=== PATIENT | male | born 1945 | race Caucasian/White ===

== ENCOUNTER 2018-01-23 17:03 | Emergency (ER) | payer MEDICARE, BC ==
[2018-01-23 17:22] VITALS: O2SAT 97
[2018-01-23] MEDS ORDERED: BACIGUENT PACKET ONE (17:32)
[2018-01-23] MEDS ORDERED: Adacel Vial IM ONE (17:33)
--- NOTE | 2018-01-23 17:34 | ERPHSYRPT ---
- History of Present Illness Time Seen by Provider: 01/23/18 17:28 Source: patient Exam Limitations: no limitations Patient Subjective Stated Complaint: pt reports he was reaching across the counter to change a storm window when he slipped and the window came down suddenly on his left wrist. pt denies any other injury. Triage Nursing Assessment: pt is aox3, pupils perrl, afebrile, resps easy and non labored, radial pulses strong and equal. skin pink warm dry. pt has a large hematoma to the left dorsal wrist. small abrasion noted. bleeding controlled at this time. pt sensation is intact, ROM is normal. pt can move extremity and all digits with ease. Physician History: 72-year-old white male with history of atherosclerotic coronary artery disease, RI, high blood pressure, diabetes, sleep apnea Patient arrives with complaint pain and swelling of the left distal forearm dorsally symptoms since just prior to arrival. According to patient patient was working on a storm window apparently he slipped forward and the window came down and struck him on the dorsal surface of his left distal wrist. Patient has a small laceration perhaps 1-2 mm however he does have a large amount of edema to the dorsal distal wrist. He has full range of motion to all extremities. 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 He is denies other complaints other than he had some slight tenderness in his left lateral hip. Past medical history includes atherosclerotic coronary artery disease, myocardial infarction, CABG, high blood pressure, diabetes mellitus, sleep apnea , bilateral knee replacement,. Patient is on Effient. Social history patient denies tobacco alcohol or illicit drug use Occurred: just prior to arrival Method of Injury: direct blow (window fell and hit his dorsal left forearm) Quality: other (Minimal pain) Severity of Pain-Max: mild Severity of Pain-Current: mild Extremities Pain Location: forearm: left Modifying Factors: Improves With: nothing Associated Symptoms: none Allergies/Adverse Reactions: No Known Drug Allergies Allergy (Verified 01/23/18 17:23) Home Medications: Aspirin EC 81 mg [Ecotrin 81 mg] 81 mg PO DAILY 01/23/18 [History] Atorvastatin Calcium 40 mg PO HS 01/23/18 [History] Calcium Lactate 84 mg PO DAILY 01/23/18 [History] Chromium/Herbal Complex No.238 [Green Tea Caplet] 1 tablet PO DAILY 01/23/18 [ History] Ezetimibe 10 mg [Zetia 10 MG] 10 mg PO HS 01/23/18 [History] Furosemide 40 mg [Lasix 40 MG] 40 mg PO DAILY 01/23/18 [History] Losartan Potassium 100 mg PO DAILY 01/23/18 [History] Metformin HCl [Metformin HCl ER] 1,000 mg PO DAILY 01/23/18 [History] Methylsulfonylmethane [MSM] 1,000 mg PO DAILY 01/23/18 [History] Metoprolol Succinate 50 mg [Toprol Xl 50 MG] 50 mg PO DAILY 01/23/18 [ History] Mv-Mn/Iron/Folic Acid/Herb 190 [Megavite Caplet] 1 tablet PO DAILY 01/23/18 [ History] Nitroglycerin 0.4 mg Tablet [Nitrostat 0.4 MG Tablet] 0.4 mg SL TIDPRN 05/12 [History] [place]-3/Dha/Epa/Fish Oil [[place] 3 500 Softgel] 1 each PO DAILY 01/23/18 [History ] Pioglitazone 30 mg [Actos 30 MG] 30 mg PO DAILY 01/23/18 [History] Prasugrel HCL 10 MG [Effient 10 MG TABLET] 10 mg PO DAILY 01/23/18 [ History] Quercetin Dihydrate 1 gm MC DAILY 01/23/18 [History] Saw/Vit E/Sod Kathleen/Lyc/Beta/Pyg [Prostate Health Caplet] 1 tablet PO DAILY [History] Triamterene/Hydrochlorothiazid [Triamterene-Hctz 37.5-25 mg Tb] 1 each PO DAILY 01/23/18 [History] Hx Tetanus, Diphtheria Vaccination/Date Given: No Hx Influenza Vaccination/Date Given: No Hx Pneumococcal Vaccination/Date Given: No Immunizations Up to Date: Yes - Review of Systems Constitutional: No Fever, No Chills Eyes: No Symptoms Ears, Nose, & Throat: No Symptoms Respiratory: No Cough, No Dyspnea Cardiac: No Chest Pain, No Edema, No Syncope Abdominal/Gastrointestinal: No Abdominal Pain, No Nausea, No Vomiting, No Diarrhea Genitourinary Symptoms: No Dysuria Musculoskeletal: Other (hematoma versus edema left dorsal forearm mild tenderness with palpation), No Back Pain, No Neck Pain Skin: Other (hematoma versus edema left dorsal forearm, one to 2 mm laceration superficial to this) Neurological: No Dizziness, No Focal Weakness, No Sensory Changes Psychological: No Symptoms Endocrine: No Symptoms All Other Systems: Reviewed and Negative - Past Medical History Cardiac History: Coronary Artery Disease, Hypertension Respiratory History: Sleep Apnea Endocrine Medical History: Diabetes Type II Musculoskeletal History: Arthritis History: Other Other Medical History: kidney stone - Past Surgical History Past Surgical History: Yes Cardiac: CABG, Cardiac Catheterization, Cardiac Stent Musculoskeletal: Joint Replacement Other Surgical History: bilat knee replacement 2016 - Social History Smoking Status: Never smoker Drug Use: none Patient Lives Alone: No - Nursing Vital Signs Nursing Vital Signs: Initial Vital Signs Temperature 99.6 F 01/23/18 17:10 Pulse Rate 66 01/23/18 17:10 Respiratory Rate 18 01/23/18 17:10 Blood Pressure 127/62 01/23/18 17:10 O2 Sat by Pulse Oximetry 97 01/23/18 17:10 Pain Scale Pain Intensity 2 - Physical Exam General Appearance: alert Eyes, Ears, Nose, Throat Exam: moist mucous membranes Neck Exam: non-tender, supple Cardiovascular/Respiratory Exam: chest non-tender, normal breath sounds, regular rate/rhythm, no respiratory distress Abdominal Exam: non-tender, No guarding Back Exam: normal inspection, No vertebral tenderness Shoulder Exam: normal inspection, non-tender, no evidence of injury, normal ROM Elbow/Forearm Exam: No normal inspection (left dorsal forearm with approximately 84 cm hematoma distally, one to 2 mm superficial laceration overlying this) Wrist Exam: normal inspection Hand Exam: normal inspection Neuro/Tendon Exam: normal sensation, normal motor functions Mental Status Exam: alert, oriented x 3, cooperative Skin Exam: other (8 x 4 cm hematoma overlying dorsal distal left forearm,1-2 mm superficial laceration overlying this) SpO2 Interpretation: normal SpO2: 97 Oxygen Delivery: Room Air - Course Nursing assessment & vital signs reviewed: Yes - Radiology Exams Left Forearm X-ray Interpretation: Discussed w/ radiologist (x-ray left forearm: No comparisons. Negative fracture. Scapholunate widening, probable underlying ligament tear. Mild elbow degenerative spurring. Distal soft tissue swelling and vesicular calcification.) Ordered Tests: Active Orders 24 hr Category Date Time Status Bryan Bandage Application -[facility] STAT Care 01/23/18 18:07 Active Ice Pack, Apply PRN Care 01/23/18 17:47 Active Wound Care STAT Care 01/23/18 17:27 Active FOREARM Stat Exams 01/23/18 17:28 Taken Medication Summary Discontinued Medications Generic Name Dose Route Start Last Admin Trade Name Eliana PRN Reason Stop Dose Admin Bacitracin Zinc 0.9 gm 01/23/18 17:27 01/23/18 17:36 Baciguent Packet TP 01/23/18 17:28 0.9 gm STAT ONE Administration Bacitracin Zinc Confirm 01/23/18 17:32 Baciguent Packet Administered 01/23/18 17:33 Dose 1 gm .ROUTE .STK-MED ONE Diphtheria/Tetanus/Acell Pertussis 0.5 ml 01/23/18 17:27 01/23/18 17:35 Adacel Vial IM 01/23/18 17:28 0.5 ml .ONCE ONE Administration Diphtheria/Tetanus/Acell Pertussis Confirm 01/23/18 17:33 Adacel Vial Administered 01/23/18 17:34 Dose 0.5 ml IM .STK-MED ONE - Progress Progress: improved Progress Note: 01/23/18 18:45 72-year-old white male with history of atherosclerotic coronary artery disease, RI, CABG, high blood pressure, diabetes type 2, sleep apnea Patient arrives with complaint of swelling in his a dorsal left forearm symptoms since just prior to arrival apparently the patient was putting in a storm window when he slipped forward and window fell down and closed on his left forearm. He has an approximately 8 x 4 cm hematoma to the left dorsal distal forearm he has minimal tenderness in the area. He has a small 1-2 mm superficial laceration overlying the hematoma he does not have active bleeding. He has radial and ulnar pulses which are equal and symmetrical 2 over 4 he has good capillary refill to all fingers sensation intact to all fingers. Patient had an x-ray of the left forearm here in the emergency room which is negative for fractures. There is scapholunate widening which is interpreted as probable underlying ligament tear by the radiologist. He has mild elbow degenerative spurring, distal soft tissue swelling and scattered vascular calcification. Patient really with minimal tenderness most of which is located over the hematoma which is proximal to the scapholunate joint. Upon reexamination perhaps very mild tenderness overlying the scapholunate joint dorsally. I've asked the patient's nurse to go ahead and clean his superficial laceration apply bacitracin. Patient was initially given an Bryan wrap and cold packs to the emergency room. Will place patient into an aluminum splint for the left wrist and have Bryan wrap over this. Will have patient follow-up with Dr. Griffith he is to call her tomorrow. He may alternatively follow-up with his orthopedist in [place]. I've offered the patient pain medications he doesn't want any , he states he really doesn't hurt. He will be advised to take Tylenol if necessary every 4 hours at home. He will be advised ice and elevate his left forearm 24-48 hours. - Departure Time of Disposition: 18:50 Departure Disposition: Home Clinical Impression: scapholunate widening left wrist Contusion of left forearm Qualifiers: Encounter type: initial encounter Qualified Code(s): S50.12XA - Contusion of left forearm, initial encounter Traumatic hematoma of left forearm Qualifiers: Encounter type: initial encounter Qualified Code(s): S50.12XA - Contusion of left forearm, initial encounter Condition: Fair Critical Care Time: No Referrals: TORRIE GRIFFITH [Primary Care Provider] - Additional Instructions: Return home. Bacitracin to laceration until healed. Ice and elevate your left wrist 24-48 hours monitor fingers 4 good capillary refill. Tylenol every 4 hours as needed for pain. Follow-up with Dr. Griffith or your orthopedist. Return for acute distress or for severe symptoms.
[2018-01-23] MEDS: Adacel Vial IM ONE (17:35)
[2018-01-23] MEDS: BACIGUENT PACKET TP ONE (17:36)
[2018-01-23 19:02] VITALS: BP 129/65; PULSE 58
--- NOTE | 2018-01-24 08:37 | XRAY ---
Indication: Pain and swelling following injury. Comparison: None 2 views of the left forearm demonstrates distal posterior soft tissue swelling, elbow degenerative spurring, and scattered vascular calcifications. Widening of the scapholunate articulation concerning for underlying ligamentous tear. No other bony, articular, or soft tissue abnormalities.
== END 2018-01-23 19:05 | disposition home or self-care (01) ==
LOC: ED 17:03
DX: S50.12XA Contusion of left forearm, initial encounter (principal); S59.812A Other specified injuries left forearm, initial encounter; W20.8XXA Other cause of strike by thrown, projected or falling object, initial encounter; Y93.89 Activity, other specified; Y92.009 Unspecified place in unspecified non-institutional (private) residence as the place of occurrence of the external cause; Z79.82 Long term (current) use of aspirin; Z79.899 Other long term (current) drug therapy
CPT/HCPCS: 73090; 90471; 90715; 99284; A4570; A9270-GY

== ENCOUNTER 2021-09-16 05:48 | Day surgery (SDC) | payer MEDICARE, BC ==
[2021-09-16] MEDS ORDERED: Lactated Ringers 1,000 ML IV ONE (06:59)
[2021-09-16] MEDS ORDERED: Lactated Ringers 1,000 ML IV SCH (07:00)
[2021-09-16] MEDS ORDERED: DIPRIVAN 200 MG/20 ML IV ONE ×2 (07:41→07:43)
[2021-09-16] MEDS ORDERED: Xylocaine-Mpf 2% 5 Ml Vial ONE (07:41)
[2021-09-16] MEDS ORDERED: XYLOCAINE 2%/Epi 1:200000 20ML VIAL MPF ONE (07:43)
[2021-09-16] MEDS ORDERED: ATROPINE SULFATE 1MG ONE (07:58)
--- NOTE | 2021-09-16 08:26 | PCM.DCORD ---
- Discharge Disposition: Home, Self-Care Condition: Stable Prescriptions: New PANTOPRAZOLE 40 mg Tablet [Protonix 40MG Tablet] 40 mg PO QPM #30 tab Continue Saw/Vit E/Sod Kathleen/Lyc/Beta/Pyg [Prostate Health Caplet] 1 tablet PO DAILY Mv-Mn/Iron/Folic Acid/Herb 190 [Megavite Caplet] 1 tablet PO DAILY Methylsulfonylmethane [MSM] 1,000 mg PO DAILY Chromium/Herbal Complex No.238 [Green Tea Caplet] 1 tablet PO DAILY [place]-3/Dha/Epa/Fish Oil [[place] 3 500 Softgel] 1 each PO DAILY Calcium Lactate 84 mg PO DAILY Triamterene/Hydrochlorothiazid [Triamterene-Hctz 37.5-25 mg Tb] 1 each PO DAILY Pioglitazone 30 mg [Actos 30 MG] 30 mg PO DAILY Nitroglycerin 0.4 mg Tablet [Nitrostat 0.4 MG Tablet] 0.4 mg SL TIDPRN Metoprolol Succinate 50 mg [Toprol Xl 50 MG] 0.5 tab PO DAILY Metformin HCl [Metformin ER Osmotic] 1,000 mg PO BID Losartan Potassium 100 mg PO DAILY Furosemide 40 mg [Lasix 40 MG] 40 mg PO DAILY Ezetimibe 10 mg [Zetia 10 MG] 10 mg PO HS Atorvastatin Calcium 40 mg PO HS Chromium/Herbal Complex No.238 [Green Tea Caplet] 1 tab PO BID Discontinued Prasugrel HCL 10 MG [Effient 10 MG TABLET] 10 mg PO DAILY Additional Instructions: hold prasurgel for 5 days, avoid aspirin and all nsaids. start pantoprazole 40mg in the evening today. f/u in office in 1 week Follow up with: TORRIE JAMES [Primary Care Provider] -
--- NOTE | 2021-09-16 08:49 | OP ---
SURGERY DATE/TIME: 09/16/2021 0742 PREOPERATIVE DIAGNOSES: 1) Dysphagia. 2) Anemia. 3) Due for screening colonoscopy. POSTOPERATIVE DIAGNOSES: 1) Moderate gastritis. 2) Transverse and sigmoid colon polyp. PROCEDURES: 1) EGD. 2) Colonoscopy. SURGEON: Alexis Ayon M.D. ANESTHESIA: MAC by Jair Merrill CRNA. ESTIMATED BLOOD LOSS: Minimal. SPECIMENS: 1) There are two cold forceps biopsies taken from the gastric antrum. 2) Two hot forceps polypectomies from the colon. DESCRIPTION OF PROCEDURE: After informed written consent was obtained, the patient was taken to the endoscopy suite. He was placed in left lateral decubitus position and a bite block was inserted. Anesthesia was titrated to desired level of consciousness and the endoscope was inserted in the posterior oropharynx. Under direct visualization the esophagus was traversed. The esophageal mucosa had a normal appearance free of any lesions or defects. Likewise, the gastroesophageal junction appeared normal with small hiatal hernia present. There were some dried flecks of blood in the gastric cavity. No active bleeding or ulcerations appreciable. The pylorus was traversed and the duodenum had a normal mucosal appearance. There were gastritis-type changes in the gastric antrum. Two cold forceps biopsies were taken from this area and sent for Helicobacter pylori testing. Upon withdrawal no other obvious abnormalities were encountered. The scope was removed and the scopes were switched. Digital rectal exam showed normal sphincter tone and no internal lesions. The scope was inserted in the rectum and sequentially the entire colonic mucosa was traversed. The level of the cecum was reached and verified with direct visualization of the ileocecal valve. Upon withdrawal there was a small sessile polyp in the distal transverse colon which was grasped with forceps, cauterized and removed in its entirety. Likewise, there was another small sessile polyp in the sigmoid colon which was removed with hot forceps. Prior to withdrawal retroflexion was performed and showed no internal lesions. The scope was removed and the patient was transferred to the recovery room in good condition. I have advised that he hold his Effient for five days to allow biopsy sites to heal and plan to start him on proton pump inhibitor at the time of discharge.
[2021-09-16 09:01] VITALS: BP 127/89; PULSE 54; O2SAT 99
== END 2021-09-16 09:19 | disposition home or self-care (01) ==
LOC: SDC 05:48
PROVIDERS: ATTEND Family Medicine
DX: Z12.11 Encounter for screening for malignant neoplasm of colon (principal); R13.10 Dysphagia, unspecified; D12.5 Benign neoplasm of sigmoid colon; K29.70 Gastritis, unspecified, without bleeding; D64.9 Anemia, unspecified; E11.9 Type 2 diabetes mellitus without complications
CPT/HCPCS: 82947; 99100; J0461; J2704

== ENCOUNTER 2023-04-22 15:34 | Emergency (ER) | payer MEDICARE, BC ==
[2023-04-22 15:46] VITALS: TEMP 98.9
[2023-04-22] MEDS ORDERED: BABY ASPIRIN 81 MG CHEW PO ONE (16:10)
[2023-04-22] MEDS ORDERED: BABY ASPIRIN 81 MG CHEW ONE (16:19)
[2023-04-22 16:25] LABS: Absolute Neutrophil Ct (ANC) 5.26 x10^3/uL (1.4-6.9); BASOPHIL % 0.7 % (0.0-0.4); Basophil (Absolute #) 0.05 x10^3/uL (0-0.4); Eosinophil % 2.3 % (0.00-5.0); Eosinophil (Absolute #) 0.17 x10^3/uL (0-0.5); Hematocrit 37.6 % (42-50); Hemoglobin 11.8 g/dL (12.5-18.0); IMMATURE GRAN # 0.05 x10^3u/L (0.00-0.03); IMMATURE GRAN % 0.7 % (0.00-0.4); Lymphocyte (Absolute #) 1.18 x10^3/uL (1.0-4.6); Lymphocytes % 16.1 % (24.0-44.0); Mean Cell Volume 95.2 fL (78-100); Mean Corpuscular Hemoglobin 29.9 pg (26-32); Mean Corpuscular Hgb Concent. 31.4 g/dL (32-36); Monocyte (Absolute #) 0.63 x10^3/uL (0.0-1.3); Monocytes % 8.6 % (0.0-12.0); Neutrophil % 71.6 % (36.0-66.0); Platelet Count 291 x10^3/uL (150-450); Red Blood Count 3.95 x10^6/uL (4.1-5.6); Red Cell Distribution Width 14.7 % (11.5-14.0); White Blood Count 7.3 x10^3/uL (4.0-10.5)
[2023-04-22 16:34] LABS: ALBUMIN 4.3 g/dL (3.5-5.0); ANION GAP 12.9 MEQ/L (5-15); BILIRUBIN,TOTAL 0.8 mg/dL (0.2-1.3); Calcium 9.8 mg/dL (8.4-10.2); Creatinine 1 0.99 mg/dL (0.66-1.25); Total Protein 7.6 g/dL (6.3-8.2)
[2023-04-22 16:35] LABS: PROTIME 10.9 SECONDS (9.4-12.5)
--- NOTE | 2023-04-22 16:43 | ERPHSYRPT ---
- History of Present Illness Time Seen by Provider: 04/22/23 15:45 Historian: patient, family (Patient's spouse provided independent, additional medical information and details of patient's symptoms in the last few days) Exam Limitations: no limitations Patient Subjective Stated Complaint: pt c/o of left sided chest pressure and shortness of breath Triage Nursing Assessment: Pt brought to the ER by his , hypertensive, rates chest pressure as 3/10, ravin lower leg edema, pulses normal, reports being short of breath for the past couple of days and began having some chest pain after lunch today, pt walked into the ER with a stable gait Physician History: This is an obese 78-year-old white male patient of Dr. Casiano who has history of hypertension, coronary disease including CABG and cardiac stents, and presen ts with 2 to 3-day history of intermittent substernal/central chest pressure as well as similar symptoms occasionally in his left anterior chest. No other areas of radiation. Patient stated he feels as though his symptoms would completely resolve if he was able to belch. The symptoms he is experiencing now are different than those symptoms from his prior myocardial infarctions. Patient has a history of gastroesophageal reflux disease, diabetes, hyperlipidemia and sleep apnea. He is on Plavix. He is a former smoker. Timing/Duration: day(s) (Last 2 to 3 days), worse (No worse in intensity just more constant today) Quality: pressure Location: substernal, central, other Chest Pain Radiation: no radiation Severity of Pain-Max: mild Severity of Pain-Current: mild Modifying Factors: Improves With: nothing Associated Symptoms: shortness of breath (With exertion and laying flat), fatigue (More than usual last 2 to 3 days) Nitro Today/Relief: no nitro taken today Aspirin Treatment Today: no aspirin today Allergies/Adverse Reactions: No Known Drug Allergies Allergy (Verified 04/22/23 15:46) Home Medications: Atorvastatin Calcium 40 mg PO HS 01/23/18 [History] Calcium Lactate 84 mg PO DAILY 01/23/18 [History] Chromium/Herbal Complex No.238 [Green Tea Caplet] 1 tablet PO DAILY 01/23/18 [History] Ezetimibe 10 mg [Zetia 10 MG] 10 mg PO HS 01/23/18 [History] Furosemide 40 mg [Lasix 40 MG] 40 mg PO DAILY 01/23/18 [History] Losartan Potassium 100 mg PO DAILY 01/23/18 [History] Metformin HCl [Metformin ER Osmotic] 1,000 mg PO BID 01/23/18 [History] Methylsulfonylmethane [MSM] 1,000 mg PO DAILY 01/23/18 [History] Metoprolol Succinate 50 mg [Toprol Xl 50 MG] 0.5 tab PO DAILY 01/23/18 [History] Mv-Mn/Iron/Folic Acid/Herb 190 [Megavite Caplet] 1 tablet PO DAILY 01/23/18 [History] Nitroglycerin 0.4 mg Tablet [Nitrostat 0.4 MG Tablet] 0.4 mg SL TIDPRN 01/23/18 [History] [place]-3/Dha/Epa/Fish Oil [[place] 3 500 Softgel] 1 each PO DAILY 01/23/18 [History] Pioglitazone 30 mg [Actos 30 MG] 30 mg PO DAILY 01/23/18 [History] Saw/Vit E/Sod Kathleen/Lyc/Beta/Pyg [Prostate Health Caplet] 1 tablet PO DAILY 01/23/18 [History] Triamterene/Hydrochlorothiazid [Triamterene-Hctz 37.5-25 mg Tb] 1 each PO DAILY 01/23/18 [History] Chromium/Herbal Complex No.238 [Green Tea Caplet] 1 tab PO BID 09/11/21 [History] Hx Tetanus, Diphtheria Vaccination/Date Given: No Hx Influenza Vaccination/Date Given: No Hx Pneumococcal Vaccination/Date Given: No Travel Risk - International Travel Have you traveled outside of the country in past 3 weeks: No - Coronavirus Screening Are you exhibiting any of the following symptoms?: Yes Symptoms: Shortness of Breath - Vaccine Status Have you recieved a Covid-19 vaccination: No - Review of Systems Constitutional: Fatigue Eyes: No Symptoms Ears, Nose, & Throat: No Symptoms Respiratory: Dyspnea on Exertion ([place]) Cardiac: Chest Pain (Grabbed as a pressure) Abdominal/Gastrointestinal: No Symptoms Genitourinary Symptoms: No Symptoms Musculoskeletal: No Symptoms Skin: No Symptoms Neurological: No Symptoms Psychological: No Symptoms Endocrine: No Symptoms Hematologic/Lymphatic: No Symptoms Immunological/Allergic: No Symptoms All Other Systems: Reviewed and Negative - Past Medical History Pertinent Past Medical History: Yes Neurological History: No Pertinent History ENT History: No Pertinent History Cardiac History: Congenital Heart Disease, Myocardial Infarction ([place]), High Cholesterol, Hypertension Respiratory History: Sleep Apnea Endocrine Medical History: Diabetes Type II Musculoskeletal History: Arthritis GI Medical History: Ulcer History: No Pertinent History Psycho-Social History: No Pertinent History Male Reproductive Disorders: No Pertinent History Other Medical History: [place] 20 years ago. Hx of ulcer as a teenager. Hard of hearing Left ear. No hearing aids. - Past Surgical History Past Surgical History: Yes Neuro Surgical History: No Pertinent History Cardiac: CABG, Cardiac Stent, Cardiac Catheterization Respiratory: No Pertinent History Gastrointestinal: No Pertinent History Genitourinary: Kidney Surgery Musculoskeletal: Orthopedic Surgery, Joint Replacement Male Surgical History: No Pertinent History Other Surgical History: CABG x 5 vessels 20 years ago. Cardiac stent x 1 two years ago. Lithotripsy x2 with urethral stents. middle ear surgery left ear. Bilateral knee replacements. 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 - Social History Smoking Status: Former smoker Exposure to second hand smoke: No Drug Use: none Patient Lives Alone: No - Nursing Vital Signs Nursing Vital Signs: Initial Vital Signs Temperature 98.9 F 04/22/23 15:36 Pulse Rate 78 04/22/23 15:36 Respiratory Rate 22 04/22/23 15:36 Blood Pressure 168/71 04/22/23 15:36 O2 Sat by Pulse Oximetry 95 04/22/23 15:36 Pain Scale Pain Intensity 0 - Physical Exam General Appearance: no apparent distress, alert, anxiety, obese Eye Exam: PERRL/EOMI, eyes nml inspection Ears, Nose, Throat Exam: normal ENT inspection, moist mucous membranes Neck Exam: normal inspection, non-tender, supple, full range of motion Respiratory Exam: normal breath sounds, chest tenderness, lungs clear, airway intact, No respiratory distress Cardiovascular Exam: regular rate/rhythm, normal heart sounds, normal peripheral pulses Gastrointestinal/Abdomen Exam: soft, normal bowel sounds, No tenderness Rectal Exam: not done Back Exam: normal inspection, normal range of motion, No CVA tenderness, No vertebral tenderness Extremity Exam: normal range of motion, pelvis stable, pedal edema (Mild bilateral feet and ankle) Neurologic Exam: alert, oriented x 3, cooperative, instrument repairer II-XII nml as tested, normal mood/affect, nml cerebellar function, nml station & gait, sensation nml Skin Exam: normal color, warm, dry Lymphatic Exam: No adenopathy SpO2 Interpretation: normal SpO2: 96 O2 Delivery: Room Air - Course Nursing assessment & vital signs reviewed: Yes EKG Interpreted by Me: RATE (88), Sinus Rhythm, NORMAL AXIS, Other (Ventricular bigeminy. Prolonged SD interval. No acute ischemic changes on today's twelve- lead EKG. No comparison twelve-lead EKG available) Ordered Tests: Active Orders 24 hr Category Date Time Status Tool Crib Lead STAT Care 04/22/23 16:11 Active EKG-ER Only STAT Care 04/22/23 16:10 Active IV Insertion STAT Care 04/22/23 16:10 Active Pulse Oximetry (ED) STAT Care 04/22/23 16:10 Active CHEST 1 VIEW (PORTABLE) Stat Exams 04/22/23 16:10 Taken BLOOD CULTURE Stat Lab 04/22/23 16:41 Received CBC W DIFF Stat Lab 04/22/23 16:00 Completed CMP Stat Lab 04/22/23 16:00 Completed MONO SCREEN Stat Lab 04/22/23 16:00 Completed NT PRO BNPII Stat Lab 04/22/23 16:00 Completed PROTIME WITH INR Stat Lab 04/22/23 16:00 Completed TROPONIN Q4H Lab 04/22/23 16:00 Completed TROPONIN Q4H Lab 04/22/23 19:00 Completed TROPONIN Q4H Lab 04/23/23 00:15 Ordered Medication Summary Discontinued Medications Generic Name Dose Route Start Last Admin Trade Name Freq PRN Reason Stop Dose Admin Aspirin 324 mg 04/22/23 16:10 04/22/23 16:20 Aspirin 81 Mg Tab.Chew PO 04/22/23 16:11 324 mg STAT ONE Administration Aspirin Confirm 04/22/23 16:19 Aspirin 81 Mg Tab.Chew Administered 04/22/23 16:20 Dose 324 mg .ROUTE .STK-MED ONE Furosemide 40 mg 04/22/23 18:16 04/22/23 18:22 Furosemide 40 Mg/4 Ml Vial IV 04/22/23 18:17 40 mg STAT ONE Administration Furosemide Confirm 04/22/23 18:20 Furosemide 40 Mg/4 Ml Vial Administered 04/22/23 18:21 Dose 40 mg .ROUTE .STK-MED ONE Lab/Rad Data: Laboratory Result Diagrams 04/22/23 16:00 04/22/23 16:00 Laboratory Results 04/22/23 04/22/23 04/22/23 Range/Units 19:00 16:20 16:00 WBC (4.0-10.5) x10^3/uL RBC (4.1-5.6) x10^6/uL Hgb (12.5-18.0) g/dL Hct (42-50) % MCV (78-100) fL MCH (26-32) pg MCHC (32-36) g/dL RDW (11.5-14.0) % Plt Count (150-450) x10^3/uL MPV (7.5-11.0) fL Gran % (36.0-66.0) % Immature Gran % (Auto) (0.00-0.4) % Nucleat RBC Rel Count (0.00-0.1) % Eos # (Auto) (0-0.5) x10^3/uL Immature Gran # (Auto) (0.00-0.03) x10^3u/L Absolute Lymphs (auto) (1.0-4.6) x10^3/uL Absolute Monos (auto) (0.0-1.3) x10^3/uL Absolute Nucleated RBC (0.00-0.01) x10^3u/L Lymphocytes % (24.0-44.0) % Monocytes % (0.0-12.0) % Eosinophils % (0.00-5.0) % Basophils % (0.0-0.4) % Absolute Granulocytes (1.4-6.9) x10^3/uL Basophils # (0-0.4) x10^3/uL PT (9.4-12.5) SECONDS INR (0.8-3.0) Sodium (137-145) mmol/L Potassium (3.5-5.1) mmol/L Chloride (98-107) mmol/L Carbon Dioxide (22-30) mmol/L Anion Gap (5-15) MEQ/L BUN (9-20) mg/dL Creatinine (0.66-1.25) mg/dL Estimated GFR ML/MIN Glucose (74-106) mg/dL Calcium (8.4-10.2) mg/dL Total Bilirubin (0.2-1.3) mg/dL AST (17-59) U/L ALT (0-50) U/L Alkaline Phosphatase (38-126) U/L Troponin I 0.032 (0.000-0.034) ng/mL NT-Pro-B Natriuret Pep (<300) pg/mL Serum Total Protein (6.3-8.2) g/dL Albumin (3.5-5.0) g/dL Monoscreen NEGATIVE (NEGATIVE) Influenza Type A Ag NEGATIVE (NEGATIVE) Influenza Type B Ag NEGATIVE (NEGATIVE) RSV (PCR) NEGATIVE (NEGATIVE) SARS-CoV-2 (PCR) NEGATIVE (NEGATIVE) 04/22/23 04/22/23 04/22/23 Range/Units 16:00 16:00 16:00 WBC (4.0-10.5) x10^3/uL RBC (4.1-5.6) x10^6/uL Hgb (12.5-18.0) g/dL Hct (42-50) % MCV (78-100) fL MCH (26-32) pg MCHC (32-36) g/dL RDW (11.5-14.0) % Plt Count (150-450) x10^3/uL MPV (7.5-11.0) fL Gran % (36.0-66.0) % Immature Gran % (Auto) (0.00-0.4) % Nucleat RBC Rel Count (0.00-0.1) % Eos # (Auto) (0-0.5) x10^3/uL Immature Gran # (Auto) (0.00-0.03) x10^3u/L Absolute Lymphs (auto) (1.0-4.6) x10^3/uL Absolute Monos (auto) (0.0-1.3) x10^3/uL Absolute Nucleated RBC (0.00-0.01) x10^3u/L Lymphocytes % (24.0-44.0) % Monocytes % (0.0-12.0) % Eosinophils % (0.00-5.0) % Basophils % (0.0-0.4) % Absolute Granulocytes (1.4-6.9) x10^3/uL Basophils # (0-0.4) x10^3/uL PT 10.9 (9.4-12.5) SECONDS INR 1.00 (0.8-3.0) Sodium (137-145) mmol/L Potassium (3.5-5.1) mmol/L Chloride (98-107) mmol/L Carbon Dioxide (22-30) mmol/L Anion Gap (5-15) MEQ/L BUN (9-20) mg/dL Creatinine (0.66-1.25) mg/dL Estimated GFR ML/MIN Glucose (74-106) mg/dL Calcium (8.4-10.2) mg/dL Total Bilirubin (0.2-1.3) mg/dL AST (17-59) U/L ALT (0-50) U/L Alkaline Phosphatase (38-126) U/L Troponin I 0.031 (0.000-0.034) ng/mL NT-Pro-B Natriuret Pep 1410 (<300) pg/mL Serum Total Protein (6.3-8.2) g/dL Albumin (3.5-5.0) g/dL Monoscreen (NEGATIVE) Influenza Type A Ag (NEGATIVE) Influenza Type B Ag (NEGATIVE) RSV (PCR) (NEGATIVE) SARS-CoV-2 (PCR) (NEGATIVE) 04/22/23 04/22/23 Range/Units 16:00 16:00 WBC 7.3 (4.0-10.5) x10^3/uL RBC 3.95 L (4.1-5.6) x10^6/uL Hgb 11.8 L (12.5-18.0) g/dL Hct 37.6 L (42-50) % MCV 95.2 (78-100) fL MCH 29.9 (26-32) pg MCHC 31.4 L (32-36) g/dL RDW 14.7 H (11.5-14.0) % Plt Count 291 (150-450) x10^3/uL MPV 9.0 (7.5-11.0) fL Gran % 71.6 H (36.0-66.0) % Immature Gran % (Auto) 0.7 H (0.00-0.4) % Nucleat RBC Rel Count 0.0 (0.00-0.1) % Eos # (Auto) 0.17 (0-0.5) x10^3/uL Immature Gran # (Auto) 0.05 H (0.00-0.03) x10^3u/L Absolute Lymphs (auto) 1.18 (1.0-4.6) x10^3/uL Absolute Monos (auto) 0.63 (0.0-1.3) x10^3/uL Absolute Nucleated RBC 0.00 (0.00-0.01) x10^3u/L Lymphocytes % 16.1 L (24.0-44.0) % Monocytes % 8.6 (0.0-12.0) % Eosinophils % 2.3 (0.00-5.0) % Basophils % 0.7 (0.0-0.4) % Absolute Granulocytes 5.26 (1.4-6.9) x10^3/uL Basophils # 0.05 (0-0.4) x10^3/uL PT (9.4-12.5) SECONDS INR (0.8-3.0) Sodium 142 (137-145) mmol/L Potassium 4.0 (3.5-5.1) mmol/L Chloride 104 (98-107) mmol/L Carbon Dioxide 29 (22-30) mmol/L Anion Gap 12.9 (5-15) MEQ/L BUN 19 (9-20) mg/dL Creatinine 0.99 (0.66-1.25) mg/dL Estimated GFR 77.0 ML/MIN Glucose 178 H (74-106) mg/dL Calcium 9.8 (8.4-10.2) mg/dL Total Bilirubin 0.80 (0.2-1.3) mg/dL AST 31 (17-59) U/L ALT 19 (0-50) U/L Alkaline Phosphatase 77 (38-126) U/L Troponin I (0.000-0.034) ng/mL NT-Pro-B Natriuret Pep (<300) pg/mL Serum Total Protein 7.6 (6.3-8.2) g/dL Albumin 4.3 (3.5-5.0) g/dL Monoscreen (NEGATIVE) Influenza Type A Ag (NEGATIVE) Influenza Type B Ag (NEGATIVE) RSV (PCR) (NEGATIVE) SARS-CoV-2 (PCR) (NEGATIVE) - Progress Progress: improved, re-examined Air Movement: poor Progress Note: 04/22/23 16:40 This patient's medical issue is at least moderate complexity. Level complex in the workup performed is based on review of the patient's past medical history, review of the patient's medication list, review of the patient's drug allergy list, history of present illness and physical findings on examination. Workup includes placement of intravenous line, twelve-lead EKG, CBC, CMP, BNP, troponin level, chest x-ray, CBC CMP and PT/INR. We will also order viral swabs. 04/22/23 19:24 I reviewed and interpreted the patient's laboratory data results. Patient has slightly elevated BNP level for his age. I did provide him with 40 mg of intravenous Lasix. Patient has no other significant laboratory data at this time. The patient's troponin levels in the high normal range of 0.031. I interpreted the patient's chest x-ray. There is a questionable right basal tiny pleural effusion. No obvious acute cardiopulmonary process present. There is cardiomegaly present. Patient was reexamined. His room air oxygenation saturation levels are 97%. Patient states he is feeling better than he has felt in a long time. He has no chest pain. He is not short of breath. 04/22/23 20:59 Patient's second troponin is within normal limits and not significantly changed from the prior. Patient's twelve-lead EKG was interpreted by me. It is a normal sinus rhythm. There is no acute ischemic changes. Heart rate is 66 bpm. The repeat twelve-lead EKG was performed at 1942. Patient wants to go home. We walked him up and down the em. He has no further chest pain. He is not short of breath. Patient's is allowing the patient to make a decision. I offered the patient to bring him in for observation and continue serial troponins and repeat twelve-lead EKG in the morning. He is refusing. 04/22/23 21:03 Blood Culture(s) Obtained: No Antibiotics given: No Counseled pt/family regarding: lab results, diagnosis, rad results Medical Desision Making - Independent Historian Additional History obtained from: Spouse - Diagnostic Testing Diagnostic test were ordered, analyzed, and reviewed by me: Yes Radiological Interpretation: Interpreted by me - Risk of complications Low Risk: Low risk of morbidity from additional dx testing or treatment - Departure Departure Disposition: Home Clinical Impression: Nonspecific chest pain Condition: Stable Critical Care Time: No Referrals: MARIE CASIANO, [Primary Care Provider] - Follow up/PCP as directed Additional Instructions: Drink plenty fluids. Take your medication as prescribed. Return to the emergency department if symptoms recur. Call your primary care provider and emergency nurse on Wednesday, April 26, 2023 to make arrangements for follow-up appointment in the next 3 to 5 days.
[2023-04-22 17:24] LABS: INFLUENZA A NEGATIVE (NEGATIVE); INFLUENZA B NEGATIVE (NEGATIVE); RESPIRATORY SYNCTIAL VIRUS NEGATIVE (NEGATIVE); SARS-CoV-2 Xpert Express NEGATIVE (NEGATIVE)
[2023-04-22] MEDS ORDERED: Lasix 40 MG/4 ML IV ONE (18:16)
[2023-04-22] MEDS ORDERED: Lasix 40 MG/4 ML ONE (18:20)
[2023-04-22 21:02] VITALS: BP 150/66; PULSE 65; RESP 13
[2023-04-22 21:04] VITALS: O2SAT 96
--- NOTE | 2023-04-22 21:41 | XRAY ---
Indication: Chest pain. Comparison: August 21, 2021 Portable apical lordotic chest again demonstrates CABG. New borderline cardiomegaly with new tiny bibasilar effusions favoring cardiac decompensation/CHF. Superposed pneumonia not completely excluded. Bony thorax intact.
== END 2023-04-22 21:12 | disposition home or self-care (01) ==
LOC: ED 15:34
DX: R07.9 Chest pain, unspecified (principal); I10 Essential (primary) hypertension; E11.9 Type 2 diabetes mellitus without complications; E78.5 Hyperlipidemia, unspecified; Z79.02 Long term (current) use of antithrombotics/antiplatelets; Z79.84 Long term (current) use of oral hypoglycemic drugs; Z79.899 Other long term (current) drug therapy; Z28.310 Unvaccinated for COVID-19; Z20.828 Contact with and (suspected) exposure to other viral communicable diseases
CPT/HCPCS: 0241U; 36000; 36415; 71045; 80053; 83880; 84484; 85025; 85610; 86308; 87040; 93005; 93041; 94760; 96374; 99284; J1940; A9270-GY

== ENCOUNTER 2023-11-10 15:11 | Emergency (ER) | payer MEDICARE, BC ==
[2023-11-10 15:58] VITALS: TEMP 98.1
[2023-11-10 16:02] VITALS: O2SAT 95
[2023-11-10] MEDS ORDERED: PERCOCET TABLET 5/325MG ONE (16:25)
[2023-11-10] MEDS: PERCOCET TABLET 5/325MG PO ONE (16:26)
--- NOTE | 2023-11-10 17:00 | XRAY ---
Indication: Pain following fall 3 days ago. Comparison: None 3 view left shoulder demonstrates osteopenia, mild acromioclavicular/glenohumeral degenerative arthropathy, mild/moderate multilevel cervical thoracic degenerative spondylosis, mild scattered vascular calcifications, and sternotomy wires. No other bony, articular, or soft tissue abnormalities.
--- NOTE | 2023-11-10 17:04 | XRAY ---
Indication: Pain following fall 3 days ago. Multiple contiguous axial images obtained through the chest without contrast. Comparison: None Mild bibasilar subsegmental atelectasis/scarring. Posterior lateral right lower lobe demonstrates 4 mm indeterminant subpleural noncalcified nodule. No infiltrate, effusion, or pneumothorax. Heart not enlarged with CABG. Aorta moderately arteriosclerotic without aneurysm. Alligator mediastinal and tiny right hilar calcified nodes. No pathologic mediastinal lymphadenopathy. Bony thorax intact with osteopenia, mild/moderate degenerative changes throughout spine. Limited upper abdomen demonstrates splenic calcified granulomas and 1.2 cm left mid renal exophytic hyperdense mass. Impression: 1. 4 mm right lower lobe indeterminate noncalcified nodule, too small for PET/CT. Outside comparison studies recommended. If not, recommend follow-up per Fleischner guidelines. 2. Small left mid renal exophytic hyperdense mass. Again outside comparison studies recommended if available. Sonogram may help differentiate solid versus cystic. 3. Chronic findings including atelectasis/scarring, arteriosclerotic disease, chronic bony findings, and old granulomatous disease.
--- NOTE | 2023-11-10 17:07 | ERPHSYRPT ---
- History of Present Illness Time Seen by Provider: 11/10/23 15:47 Historian: patient, family Exam Limitations: no limitations Patient Subjective Stated Complaint: Fell on 11/04/23 and injured his left shoulder and ribs. Triage Nursing Assessment: Patient ambulated back to ER. He is alert and oriented. Some bruising present to LUE. Patient having difficulty adbducting left arm/shoulder related to pain. NO SOB. Physician History: 78 years old male with a history of coronary artery disease with bypass presente d in the ER with complaint of left shoulder and left anterior chest wall pain for almost 1 week after he was running/chasing dogs, tripped and fell on the ground with injury to left shoulder and left anterolateral chest wall. Patient reports moderate intensity sharp pain with palpation/movements at shoulder and also with deep breathing it hurts in the anterolateral chest wall. No difficulty breathing. No chest pain otherwise. No abdominal pain nausea or vomiting. No numbness or tingling in the hand/wrist. Aspirin Treatment Today: unknown Allergies/Adverse Reactions: No Known Drug Allergies Allergy (Verified 11/10/23 15:46) Home Medications: Atorvastatin Calcium 40 mg PO HS 01/23/18 [History] Calcium Lactate 84 mg PO DAILY 01/23/18 [History] Chromium/Herbal Complex No.238 [Green Tea Caplet] 1 tablet PO DAILY 01/23/18 [History] Ezetimibe 10 mg [Zetia 10 MG] 10 mg PO HS 01/23/18 [History] Furosemide 40 mg [Lasix 40 MG] 40 mg PO DAILY 01/23/18 [History] Losartan Potassium 100 mg PO DAILY 01/23/18 [History] Metformin HCl [Metformin ER Osmotic] 1,000 mg PO BID 01/23/18 [History] Methylsulfonylmethane [MSM] 1,000 mg PO DAILY 01/23/18 [History] Metoprolol Succinate 50 mg [Toprol Xl 50 MG] 0.5 tab PO DAILY 01/23/18 [History] Mv-Mn/Iron/Folic Acid/Herb 190 [Megavite Caplet] 1 tablet PO DAILY 01/23/18 [History] Nitroglycerin 0.4 mg Tablet [Nitrostat 0.4 MG Tablet] 0.4 mg SL TIDPRN 01/23/18 [History] [place]-3/Dha/Epa/Fish Oil [[place] 3 500 Softgel] 1 each PO DAILY 01/23/18 [Hist ory] Pioglitazone 30 mg [Actos 30 MG] 30 mg PO DAILY 01/23/18 [History] Saw/Vit E/Sod Kathleen/Lyc/Beta/Pyg [Prostate Health Caplet] 1 tablet PO DAILY 01/23/18 [History] Triamterene/Hydrochlorothiazid [Triamterene-Hctz 37.5-25 mg Tb] 1 each PO DAILY 01/23/18 [History] Chromium/Herbal Complex No.238 [Green Tea Caplet] 1 tab PO BID 09/11/21 [History] Hx Tetanus, Diphtheria Vaccination/Date Given: Yes Hx Influenza Vaccination/Date Given: No Hx Pneumococcal Vaccination/Date Given: No Immunizations Up to Date: Yes Travel Risk - International Travel Have you traveled outside of the country in past 3 weeks: No - Emerging Infectious Disease Are you exhibiting symptoms associated with any current EIDs: No - Review of Systems Constitutional: No Symptoms Ears, Nose, & Throat: No Symptoms Respiratory: No Symptoms Cardiac: Chest Pain Abdominal/Gastrointestinal: No Symptoms Musculoskeletal: Fall, Injury, Joint Pain Skin: No Symptoms Neurological: No Symptoms Endocrine: No Symptoms Hematologic/Lymphatic: No Symptoms Immunological/Allergic: No Symptoms - Past Medical History Pertinent Past Medical History: Yes Neurological History: No Pertinent History ENT History: No Pertinent History Cardiac History: Congenital Heart Disease, Coronary Artery Disease, High Cholesterol, Hypertension, Myocardial Infarction (CT) Respiratory History: Sleep Apnea Endocrine Medical History: Diabetes Type II Musculoskeletal History: Arthritis GI Medical History: Ulcer History: No Pertinent History Psycho-Social History: No Pertinent History Male Reproductive Disorders: No Pertinent History Other Medical History: Pharmacy Tech: Dr. Silva - Past Surgical History Past Surgical History: Yes Neuro Surgical History: No Pertinent History Cardiac: CABG, Cardiac Stent, Cardiac Catheterization Respiratory: No Pertinent History Gastrointestinal: No Pertinent History Genitourinary: Kidney Surgery Musculoskeletal: Orthopedic Surgery, Joint Replacement Male Surgical History: No Pertinent History Other Surgical History: Lithotripsy x 2 with urethral stents. middle ear surgery left ear. Bilateral knee replacements. 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 - Social History Smoking Status: Never smoker Exposure to second hand smoke: No Drug Use: none Patient Lives Alone: No - Social Determinants of Health Will the patient participate in the screening: Yes Do you worry about a steady place to live?: No Do you have any problems with any of the following?: No known problems In the past 12 months,have you had to go without utilities?: No Transportation Issues: No Has anyone in your support network made you feel unsafe?: No Have you or anyone in your house had to go without enough: No - Nursing Vital Signs Nursing Vital Signs: Initial Vital Signs Temperature 98.1 F 11/10/23 15:46 Pulse Rate 70 11/10/23 15:46 Respiratory Rate 18 11/10/23 15:46 Blood Pressure 115/81 11/10/23 15:46 O2 Sat by Pulse Oximetry 96 11/10/23 15:46 Pain Scale Pain Intensity 10 - Physical Exam General Appearance: no apparent distress, alert Eye Exam: PERRL/EOMI Ears, Nose, Throat Exam: normal ENT inspection Neck Exam: normal inspection, full range of motion Respiratory Exam: normal breath sounds, chest tenderness (Left mid to lower anterolateral chest wall), lungs clear Cardiovascular Exam: regular rate/rhythm, normal heart sounds Gastrointestinal/Abdomen Exam: soft, normal bowel sounds, No tenderness Back Exam: normal inspection, normal range of motion Extremity Exam: normal inspection, limited range of motion (Left shoulder with diffuse tenderness, no crepitus, restricted range of motion in all direction.) Neurologic Exam: alert, oriented x 3 Skin Exam: normal color, warm SpO2 Interpretation: normal SpO2: 95 O2 Delivery: Room Air - Course EKG Interpreted by Me: RATE ([id number]), Sinus Carlos, NORMAL AXIS, Q-wave Ordered Tests: Active Orders 24 hr Category Date Time Status EKG-ER Only STAT Care 11/10/23 16:18 Completed CHEST WITHOUT CONTRAST [CT] Stat Exams 11/10/23 16:27 Completed SHOULDER Stat Exams 11/10/23 16:19 Completed CBC W DIFF Stat Lab 11/10/23 17:00 Completed CMP Stat Lab 11/10/23 17:00 Completed TROPONIN Q4H Lab 11/10/23 17:00 Completed Medication Summary Discontinued Medications Generic Name Dose Route Start Last Admin Trade Name Freq PRN Reason Stop Dose Admin Hydrocodone Bitart/Acetaminophen 2 tab 11/10/23 18:19 11/10/23 18:24 Hydrocodone/Apap 5/325 1 Tab Tablet PO 11/10/23 18:20 2 tab SENT HOME W/ PATIENT ONE Administration Hydrocodone Bitart/Acetaminophen Confirm 11/10/23 18:22 Hydrocodone/Apap 5/325 1 Tab Tablet Administered 11/10/23 18:23 Dose 2 tab .ROUTE .STK-MED ONE Lidocaine 1 patch 11/10/23 18:27 11/10/23 18:31 Lidocaine Hcl 1 Patch Patch TOP 11/10/23 18:28 1 patch NOW ONE Administration Lidocaine Confirm 11/10/23 18:29 Lidocaine Hcl 1 Patch Patch Administered 11/10/23 18:30 Dose 1 patch .ROUTE .STK-MED ONE Oxycodone/Acetaminophen 1 tab 11/10/23 16:19 11/10/23 16:26 Oxycodone Hcl/Apap 5 Mg/325 Mg Tablet PO 11/10/23 16:20 1 tab STAT ONE Administration Oxycodone/Acetaminophen Confirm 11/10/23 16:25 Oxycodone Hcl/Apap 5 Mg/325 Mg Tablet Administered 11/10/23 16:26 Dose 1 tab .ROUTE .STK-MED ONE Lab/Rad Data: Laboratory Result Diagrams 11/10/23 17:00 11/10/23 17:00 Laboratory Results 11/10/23 11/10/23 11/10/23 Range/Units 17:00 17:00 17:00 WBC 6.6 (4.23-9.07) x10^3/uL RBC 3.82 L (4.63-6.08) x10^6/uL Hgb 11.4 L (13.7-17.5) g/dL Hct 35.2 L (40.1-51.0) % MCV 92.1 (79.0-92.2) fL MCH 29.8 (25.7-32.2) pg MCHC 32.4 (32.3-36.5) g/dL RDW 14.6 H (11.6-14.4) % Plt Count 235 (163-337) x10^3/uL MPV 8.6 L (9.4-12.4) fL Gran % 67.1 (34.0-67.9) % Immature Gran % (Auto) 0.3 (0.001-0.429) % Nucleat RBC Rel Count 0.0 (0.00-0.2) % Eos # (Auto) 0.21 (0.04-0.54) x10^3/uL Immature Gran # (Auto) 0.02 (0.001-0.031) x10^3u/L Absolute Lymphs (auto) 1.32 (1.32-3.57) x10^3/uL Absolute Monos (auto) 0.57 (0.30-0.82) x10^3/uL Absolute Nucleated RBC 0.00 (0.00-0.012) x10^3u/L Lymphocytes % 20.0 L (21.8-53.1) % Monocytes % 8.6 (5.3-12.2) % Eosinophils % 3.2 (0.8-7.0) % Basophils % 0.8 (0.2-1.2) % Absolute Granulocytes 4.42 (1.78-5.38) x10^3/uL Basophils # 0.05 (0.01-0.08) x10^3/uL Sodium 139 (135-145) mmol/L Potassium 4.4 (3.5-5.1) mmol/L Chloride 103 (98-107) mmol/L Carbon Dioxide 28 (22-30) mmol/L Anion Gap 11.8 (5-15) MEQ/L BUN 40 H (9-20) mg/dL Creatinine 1.36 H (0.66-1.25) mg/dL Estimated GFR 52.6 ML/MIN Glucose 104 (74-106) mg/dL Calcium 10.3 H (8.4-10.2) mg/dL Total Bilirubin 0.60 (0.2-1.3) mg/dL AST 30 (17-59) U/L ALT 20 (0-50) U/L Alkaline Phosphatase 69 (38-126) U/L Troponin I 0.018 (0.000-0.033) ng/mL Serum Total Protein 7.6 (6.3-8.2) g/dL Albumin 4.5 (3.5-5.0) g/dL - Progress Progress: improved, re-examined Air Movement: good Progress Note: 11/10/23 18:04 78 years old is evaluated in the ER for ground-level fall almost a week ago with injury to left shoulder left chest wall. No obvious difficulty breathing. Has reproducible pain with movements of left shoulder and palpation of left chest wall. No crepitus or flail segment. Given symptomatic treatment for pain, on reevaluation feeling better but still have restricted range of motion of the left shoulder. Distal neurovascular is intact. X-rays of the shoulder are negative for any acute trauma related findings. I believe patient possibly has a sprain/rotator cuff injury which need further evaluation with outpatient MRI and orthopedic evaluation. EKG is sinus rhythm with no ST elevations and negative initial troponin. CBC fairly unremarkable and chemistries showed some JAZMIN, patient has history of CHF and is on triamterene HCTZ, creatinine is 1.3 which is little above the baseline. I would not give him fluids as he does have swelling in both lower extremities but recommended increase hydration and discussion with the primary care/cardiology for further evaluation and recheck of renal functions. CT chest is negative for any acute trauma findings. No rib fracture, pneumo or hemothorax. No pneumonia. I would give him a few pain pills to go home along with lidocaine patches and recommended outpatient follow- up. Discussed signs symptoms of worsening needing return to ER which she seems understanding. Stable for discharge. Blood Culture(s) Obtained: No Antibiotics given: No Counseled pt/family regarding: lab results, diagnosis, need for follow-up, rad results Medical Desision Making - Independent Historian Additional History obtained from: Spouse - Diagnostic Testing Diagnostic test were ordered, analyzed, and reviewed by me: Yes Radiological Interpretation: Reviewed by me - Risk of complications The pt has a mod risk of morbidity or mortality based on: Need for prescription drug management - Departure Departure Disposition: Home Clinical Impression: Sprain of shoulder, left, Chest wall contusion, Fall, JAZMIN (acute kidney injury) Condition: Stable Critical Care Time: No Referrals: MARIE CASIANO DO [Primary Care Provider] - Follow up with PCP 1 day GLENYS IGLESIAS MD [ACTIVE STAFF] - Follow up/PCP as directed (Call in the morning for appointment for reevaluation of shoulder) Instructions: Contusion (DC), Preventing falls in adults Prescriptions: Hydrocodone/Acetaminophen [Hydrocodone-Acetamin 5-325 mg] 1 tab PO Q6HPRN PRN 3 Days #12 tablet MDD 4 PRN Reason: Pain Lidocaine HCl 5% Patch [Lidoderm Patch 5%] 1 patch TP DAILY 12 Days #12 patch
[2023-11-10 17:08] LABS: Absolute Neutrophil Ct (ANC) 4.42 x10^3/uL (1.78-5.38); BASOPHIL % 0.8 % (0.2-1.2); Basophil (Absolute #) 0.05 x10^3/uL (0.01-0.08); Eosinophil % 3.2 % (0.8-7.0); Eosinophil (Absolute #) 0.21 x10^3/uL (0.04-0.54); Hematocrit 35.2 % (40.1-51.0); Hemoglobin 11.4 g/dL (13.7-17.5); IMMATURE GRAN # 0.02 x10^3u/L (0.001-0.031); IMMATURE GRAN % 0.3 % (0.001-0.429); Lymphocyte (Absolute #) 1.32 x10^3/uL (1.32-3.57); Mean Cell Volume 92.1 fL (79.0-92.2); Mean Corpuscular Hemoglobin 29.8 pg (25.7-32.2); Mean Corpuscular Hgb Concent. 32.4 g/dL (32.3-36.5); Mean Platelet Volume 8.6 fL (9.4-12.4); Monocyte (Absolute #) 0.57 x10^3/uL (0.30-0.82); Monocytes % 8.6 % (5.3-12.2); Neutrophil % 67.1 % (34.0-67.9); Platelet Count 235 x10^3/uL (163-337); Red Blood Count 3.82 x10^6/uL (4.63-6.08); Red Cell Distribution Width 14.6 % (11.6-14.4); White Blood Count 6.6 x10^3/uL (4.23-9.07)
[2023-11-10 17:24] LABS: ALBUMIN 4.5 g/dL (3.5-5.0); ANION GAP 11.8 MEQ/L (5-15); BILIRUBIN,TOTAL 0.6 mg/dL (0.2-1.3); Calcium 10.3 mg/dL (8.4-10.2); Creatinine 1 1.36 mg/dL (0.66-1.25); EST GLOMERULAR FILTRATION RATE 52.6 ML/MIN; Potassium 4.4 mmol/L (3.5-5.1); Total Protein 7.6 g/dL (6.3-8.2)
[2023-11-10] MEDS ORDERED: NORCO 5/325 MG ONE (18:22)
[2023-11-10] MEDS: NORCO 5/325 MG PO ONE (18:24)
[2023-11-10 18:26] VITALS: BP 115/54; PULSE 60; RESP 18
[2023-11-10] MEDS ORDERED: Lidoderm Patch 5% ONE (18:29)
[2023-11-10] MEDS: Lidoderm Patch 5% TOP ONE (18:31)
== END 2023-11-10 18:35 | disposition home or self-care (01) ==
LOC: ED 15:11
DX: S43.402A Unspecified sprain of left shoulder joint, initial encounter (principal); S20.212A Contusion of left front wall of thorax, initial encounter; W01.0XXA Fall on same level from slipping, tripping and stumbling without subsequent striking against object, initial encounter; Y93.02 Activity, running; N17.9 Acute kidney failure, unspecified; E78.5 Hyperlipidemia, unspecified; I10 Essential (primary) hypertension; E11.9 Type 2 diabetes mellitus without complications; Z79.891 Long term (current) use of opiate analgesic; Z79.84 Long term (current) use of oral hypoglycemic drugs; Z79.899 Other long term (current) drug therapy
CPT/HCPCS: 36415; 71250; 73030; 80053; 84484; 85025; 93005; 99284; A9270-GY